=== PATIENT | female | born 1985 | race Caucasian/White ===

== ENCOUNTER 2020-01-28 21:19 | Emergency (ER) | payer MEDICAID, OTHER ==
--- NOTE | 2020-01-28 22:31 | EDM.PDOC ---
<NeelamLissett taverasy M - Last Filed: 01/28/20 22:26> ED HPI GENERAL MEDICAL PROBLEM - General Chief Complaint: Genitourinary Problem Stated Complaint: POSSIBLE UTI Time Seen by Provider: 01/28/20 22:26 Source of Information: Reports: Patient, RN, RN Notes Reviewed, Significant Other History Limitations: Reports: No Limitations - History of Present Illness INITIAL COMMENTS - FREE TEXT/NARRATIVE: Pt here with significant other regarding increased frequency of urination and burning. Denies pain in flanks, fever, or chills. Claims a history of UTI. 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: Psychiatric History: Reports: Depression - Past Surgical History HEENT Surgical History: Reports: Adenoidectomy, Tonsillectomy Social & Family History - Tobacco Use Smoking Status *Q: Current Every Day Smoker Years of Tobacco use: 15 Packs/Tins Daily: 0.5 - Caffeine Use Caffeine Use: Reports: Coffee - Recreational Drug Use Recreational Drug Use: No ED ROS GENERAL - Review of Systems Review Of Systems: See Below Constitutional: Reports: No Symptoms HEENT: Reports: No Symptoms Respiratory: Reports: No Symptoms Cardiovascular: Reports: No Symptoms Endocrine: Reports: No Symptoms GI/Abdominal: Reports: No Symptoms : Reports: Frequency, Urgency Musculoskeletal: Reports: No Symptoms Skin: Reports: No Symptoms Neurological: Reports: No Symptoms Psychiatric: Reports: No Symptoms Hematologic/Lymphatic: Reports: No Symptoms Immunologic: Reports: No Symptoms ED EXAM, RENAL/ - Physical Exam Exam: See Below Exam Limited By: No Limitations General Appearance: Alert, WD/WN, No Apparent Distress Respiratory/Chest: Lungs Clear, Normal Breath Sounds Cardiovascular: Regular Rate, Rhythm (Female) Exam: Deferred, Other (frequency and urgency) Rectal (Female) Exam: Deferred Neurological: Alert, Oriented, Normal Cognition Psychiatric: Normal Affect, Normal Mood Skin Exam: Normal Color, No Rash Course - Re-Assessments/Exams Free Text/Narrative Re-Assessment/Exam: 01/28/20 22:31 Urine resulted Examine pt ABX ordered. Departure - Departure Time of Disposition: 22:33 Disposition: Home, Self-Care 01 Condition: Good Clinical Impression: UTI, Urinary tract infectious disease - Discharge Information Instructions: Urinary Tract Infection, Adult, [id number] Referrals: PCP,None [Primary Care Provider] - Forms: ED Department Discharge Care Plan Goals: Please take antibiotic medication as prescribed for urinary tract infection even when feeling better to prevent antibiotic resistance. Drink plenty of fluids and rest. Seek medical care if you develop fever, chills, night sweats, or shortness of breath. Sepsis Event Note (ED) - Evaluation Sepsis Screening Result: No Definite Risk - Problem List & Annotations (1) UTI, Urinary tract infectious disease SNOMED Code(s): 69754463 Code(s): N39.0 - URINARY TRACT INFECTION, SITE NOT SPECIFIED Status: Acute Current Visit: Yes - Problem List Review Problem List Initiated/Reviewed/Updated: Yes - Assessment/Plan Plan: Please take antibiotic medication as prescribed for urinary tract infection even when feeling better to prevent antibiotic resistance. You may purchase the Pyridium over the counter at a local market. There are generic and name brands. Drink plenty of fluids and rest. Seek medical care if you develop fever, chills, night sweats, or shortness of breath. <OfficerEren - Last Filed: 01/28/20 22:38> ED EXAM, RENAL/ - Physical Exam Text/Narrative:: Agree with exam below Course - Vital Signs Last Recorded V/S: Last Vital Signs Temp 98.0 F 01/28/20 22:03 Pulse 76 01/28/20 22:03 Resp 16 01/28/20 22:03 BP 122/80 01/28/20 22:03 Pulse Ox 100 01/28/20 22:03 - Orders/Labs/Meds Orders: Active Orders 24 hr Category Date Time Status CULTURE URINE [RM] Urgent Lab 01/28/20 22:00 Received Labs: Laboratory Tests 01/28/20 Range/Units 21:36 Urine Color Yellow (YELLOW) Urine Appearance Clear (CLEAR) Urine pH 8.5 H (5.0-8.0) Ur Specific [place] 1.020 (1.008-1.030) Urine Protein Negative (NEGATIVE) mg/dL Urine Glucose (UA) Negative (NEGATIVE) mg/dL Urine Ketones Negative (NEGATIVE) mg/dL Urine Occult Blood Negative (NEGATIVE) Urine Nitrite Negative (NEGATIVE) Urine Bilirubin Negative (NEGATIVE) Urine Urobilinogen 0.2 (0.2-1.0) EU/dL Ur Leukocyte Esterase Negative (NEGATIVE) Urine RBC 0-5 (0-5) Urine WBC 0-5 (0-5) Ur Epithelial Cells Moderate Amorphous Sediment Not seen Urine Bacteria Many Urine Mucus Few Sepsis Event Note (ED) - Focused Exam Vital Signs: Vital Signs Temp Pulse Resp BP Pulse Ox 01/28/20 22:03 98.0 F 76 16 122/80 100 01/28/20 21:55 98.0 F 76 16 122/80 100 - My Orders Last 24 Hours: My Active Orders 01/28/20 22:00 CULTURE URINE [RM] Urgent - Assessment/Plan Last 24 Hours: My Active Orders 01/28/20 22:00 CULTURE URINE [RM] Urgent Plan: Assessment Acuity = acute Site and laterality = urinary tract infection Etiology = probable bacterial cause Manifestations = none Location of injury = Home Lab values = urinalysis shows high PTH and many bacteria cultures pending Plan Elect to treat Bactrim DS 1 tab p.o. twice daily x3 days follow-up primary care 3 to 5 days if not better Eren Hernandez MD was personally available for consultation in the ED. I have reviewed the chart and agree with the documentation as recorded by the FUNERAL DIRECTOR AND EMBALMER Student, including the assessment, treatment plan and disposition. Eren Hernandez MD personally saw and examined the patient. I have reviewed and agree with the FUNERAL DIRECTOR AND EMBALMER Student's findings. This note was dictated using [employer] voice recognition software please call with any questions on syntax or grammar.
== END 2020-01-28 22:46 | disposition home or self-care (01) ==
LOC: JP.ED 21:19
DX: N39.0 Urinary tract infection, site not specified (principal); F17.210 Nicotine dependence, cigarettes, uncomplicated; Z88.0 Allergy status to penicillin
CPT/HCPCS: 81001; 87086; 99283

== ENCOUNTER 2024-11-29 13:47 | Emergency (ER) | payer BC, OTHER ==
[2024-11-29 14:16] LABS: APPEARANCE,URINE CLEAR (CLEAR); BILIRUBIN,URINE NEGATIVE (NEGATIVE); COLOR,URINE YELLOW (YELLOW); GLUCOSE,URINE NEGATIVE (NEGATIVE); KETONES,URINE NEGATIVE (NEGATIVE); LEUKOCYTE ESTERASE,URINE SMALL (NEGATIVE); NITRITE,URINE NEGATIVE (NEGATIVE); OCCULT BLOOD,URINE NEGATIVE (NEGATIVE); PROTEIN,URINE NEGATIVE (NEGATIVE); UROBILINOGEN,URINE 0.2 EU/dL (0.2-1.0)
[2024-11-29 14:24] LABS: AMORPHOUS SEDIMENT,URINE NOT SEEN; BACTERIA,URINE RARE; EPITHELIAL CELLS,URINE FEW; MUCUS,URINE NOT SEEN; RBC,URINE 0-5 (0-5)
== END 2024-11-29 15:09 | disposition home or self-care (01) ==
LOC: JP.ED 13:47
DX: N39.0 Urinary tract infection, site not specified (principal); Z87.891 Personal history of nicotine dependence; Z88.0 Allergy status to penicillin
CPT/HCPCS: 81001; 87086; 99283; 99284